=== PATIENT | female | born 1965 | race Caucasian/White ===

== ENCOUNTER 2020-02-28 16:50 | Emergency (ER) | payer SELFPAY ==
[~2020-02-28] VITALS: Ht 177.8 cm; Wt 59.8 kg
[2020-02-28] MEDS ORDERED: ONDANSETRON HCL 4MG/2ML INJ IV ONE ×3 (17:15→20:30)
[2020-02-28] MEDS ORDERED: GLUCAGON,HUMAN RECOMBINANT 1MG/VIAL IV ONE ×2 (17:15→19:00)
[2020-02-28] MEDS ORDERED: NITROGLYCERIN 0.4MG TABLET SL SL ONE ×2 (17:15→19:00)
[2020-02-28] MEDS ORDERED: MAGNESIUM/ALUMINUM HYDROXIDE/SIMETHICONE 30ML UDC PO ONE (17:15)
[2020-02-28] MEDS ORDERED: VISCOUS LIDOCAINE 2% 15 ML UDC PO ONE (17:15)
[2020-02-28] MEDS ORDERED: SODIUM CHLORIDE 0.9% 1,000 ML IV ONE (19:00)
[2020-02-28 21:41] VITALS: BP 137/77
== END 2020-02-28 21:51 | disposition home or self-care (01) ==
LOC: ER 16:50
DX: T18.128A Food in esophagus causing other injury, initial encounter (principal); X58.XXXA Exposure to other specified factors, initial encounter; Y93.89 Activity, other specified; Y92.89 Other specified places as the place of occurrence of the external cause; Z88.0 Allergy status to penicillin; R03.0 Elevated blood-pressure reading, without diagnosis of hypertension
CPT/HCPCS: 70490; 96374; 96375; 96376; 99284; J1610; J2405; J7030